=== PATIENT | female | born 1975 ===

== ENCOUNTER 2017-08-14 16:06 | Inpatient (IN) | payer OTHER ==
[~2017-08-14] VITALS: Ht 167.6 cm; Wt 65.8 kg
[2017-08-14] MEDS ORDERED: IV NORMAL SALINE 1000 ML BAG IV ONE (16:30)
[2017-08-14] MEDS ORDERED: ONDANSETRON 4 MG/2 ML VIAL IV ONE (16:30)
[2017-08-14] MEDS ORDERED: VENL75TA4 PO (16:31)
[2017-08-14 16:45] LABS: BASOPHILS % (AUTO) 0.5 % (0.0-2.0); EOSINOPHILS % (AUTO) 0.6 % (0.0-7.0); HEMOGLOBIN 14.3 g/dL (12.5-16.3); LYMPHOCYTES # (AUTO) 1.6 K/uL (20.0-40.0); LYMPHOCYTES % (AUTO) 19.8 % (20.5-51.5); MEAN CORPUSCULAR HEMOGLOBIN 31.7 uug (23.8-33.4); MEAN CORPUSCULAR HGB CONC 35 g/dL (32.5-36.3); MEAN CORPUSCULAR VOLUME 91.2 fL (73.0-96.2); MONOCYTES # (AUTO) 0.4 K/uL (2.0-10.0); MONOCYTES % (AUTO) 5.2 % (0.0-11.0); NEUTROPHILS % (AUTO) 73.9 % (38.5-71.5); PLATELET COUNT (AUTO) 200 K/uL (152-348); RED BLOOD CELL COUNT(AUTO) 4.49 MIL/uL (4.06-5.63); WHITE BLOOD COUNT (AUTO) 8.1 K/uL (3.6-10.2)
[2017-08-14] MEDS ORDERED: ONDANSETRON 4 MG/2 ML VIAL ONE (16:46)
[2017-08-14 16:57] LABS: CREATININE 0.7 mg/dL (0.6-1.3); POTASSIUM 3.5 mmol/L (3.5-5.1)
[2017-08-14 17:02] LABS: BILIRUBIN,DIRECT 0.1 mg/dL (0.0-0.2); BILIRUBIN,TOTAL 0.6 mg/dL (0.2-1.0); TOTAL PROTEIN, SERUM 7.4 g/dL (6.4-8.2)
[2017-08-14] MEDS ORDERED: DIATR MEGLU/DIATRIZOATE SODIUM 120 ML BOTTLE ONE (17:06)
--- NOTE | 2017-08-14 17:35 | NUR ---
Call placed to Dr. Menjivar () per Dr. Moss request, left msg immediate call back.
[2017-08-14] MEDS ORDERED: MAGNESIUM HYDROXIDE 30 ML LIQUID UDC PO PRN (18:00)
[2017-08-14] MEDS ORDERED: HYDROCODONE/APAP 5-325MG TABLET PO PRN (18:00)
[2017-08-14] MEDS ORDERED: Z GUARD REMEDY PASTE 57 GM TUBE TOP PRN (18:00)
[2017-08-14] MEDS ORDERED: MORPHINE SULFATE 2 MG/1 ML DISP.SYRIN IV PRN (18:00)
[2017-08-14] MEDS ORDERED: ACETAMINOPHEN 325 MG TABLET PO PRN (18:00)
--- NOTE | 2017-08-14 19:46 | NUR ---
Pt. admitted to TELE, under care of Dr. [place] Belongs List completed
[2017-08-14 20:00] VITALS: BP 113/72
[2017-08-14] MEDS: ONDANSETRON 4 MG/2 ML VIAL IV PRN (21:46)
[2017-08-14] MEDS: IV D5 1/2 NS 1000 ML 1,000 ML IV PRN (21:47)
[2017-08-14] MEDS: MORPHINE SULFATE 4 MG/1 ML DISP.SYRIN IV PRN (22:19)
--- NOTE | 2017-08-14 22:23 | NUR ---
Dr. Camp aware of bouts of diarrhea- at this point and time nothing is recomended due to disease process of partial gastro opening physical obstruction due to a balloon inserted on previous procedure. Patient is aware if any medication that affects the g.i. system can affect the gastric mouth partial obstruction. Patient repeated back instructions and understood. Placed call light with in reach.
--- NOTE | 2017-08-14 22:45 | NUR ---
Patient came in via gurney to 226. Patient's main compliant at this point and time is N/V/D x4 episodes since admitted to floor, MD aware. Attempted to insert NG to low intermittent suction as ordered. Patient did not tolerate ng insertion x 1 to left nare. Noted with nose cosmetic surgery. Patient refused ng insertion at this point and time. Patient teaching in compliance to plan of care, Patient verbalized understanding of instructions but refuse any further attempts at ng insertion.
[2017-08-15] MEDS: ONDANSETRON 4 MG/2 ML VIAL IV PRN ×3 (03:11→17:06)
[2017-08-15] MEDS: MORPHINE SULFATE 4 MG/1 ML DISP.SYRIN IV PRN ×4 (03:26→19:48)
[2017-08-15] MEDS ORDERED: MORPHINE SULFATE 2 MG/1 ML DISP.SYRIN ONE (03:38)
[2017-08-15 04:48] VITALS: BP 100/57
--- NOTE | 2017-08-15 07:00 | NUR ---
PATIENT STABLE ON SHIFT, NO EPISODES OF ACUTE CARDIO PULMONARY DISTRESS. CALL LIGHT WITH IN REACH. PATIENT KEPT NPO FOR POSSIBLE EGD TO REMOVE BALLOON IN GASTRIC/STOMACH. PATIENT FREE FROM FALLS ON SHIFT.
[2017-08-15 07:07] LABS: BILIRUBIN,TOTAL 0.4 mg/dL (0.2-1.0); CREATININE 0.6 mg/dL (0.6-1.3); MAGNESIUM 1.8 mg/dL (1.8-2.4); PHOSPHOROUS 3.3 mg/dL (2.5-4.9); POTASSIUM 3.3 mmol/L (3.5-5.1); TOTAL PROTEIN, SERUM 6.3 g/dL (6.4-8.2)
[2017-08-15 07:08] LABS: THYROID STIMULATING HORMONE 1.632 mIU/mL (0.358-3.740)
[2017-08-15 07:12] LABS: BASOPHILS % (AUTO) 0.4 % (0.0-2.0); EOSINOPHILS # (AUTO) 0.1 K/uL (0.0-0.7); EOSINOPHILS % (AUTO) 1.2 % (0.0-7.0); HEMATOCRIT 37.1 % (37-47); HEMOGLOBIN 12.7 G/DL (12.0-16.0); LYMPHOCYTES # (AUTO) 1.7 K/UL (0.8-4.8); LYMPHOCYTES % (AUTO) 26.5 % (20.5-51.5); MEAN CORPUSCULAR HEMOGLOBIN 31.4 UUG (27.0-31.0); MEAN CORPUSCULAR HGB CONC 34 g/dL (32.0-37.0); MEAN CORPUSCULAR VOLUME 91.8 FL (81.0-99.0); MONOCYTES # (AUTO) 0.4 K/UL (0.1-1.30); MONOCYTES % (AUTO) 6.7 % (0.0-11.0); NEUTROPHILS # (AUTO) 4.1 K/UL (1.8-8.9); NEUTROPHILS % (AUTO) 65.2 % (38.5-71.5); PLATELET COUNT (AUTO) 207 K/UL (150-450); RED BLOOD CELL COUNT(AUTO) 4.04 MIL/UL (4.2-5.4); WHITE BLOOD COUNT (AUTO) 6.3 K/UL (4.0-11.2)
--- NOTE | 2017-08-15 07:20 | NUR ---
RECEIVED REPORT FROM [employer] REPAIR TECHNICIAN NURSE, PATIENT IN BED AWAKE, APPEARS TO BE GROGGY, NO PAIN OF REPORTS OR S.O.B., BED IN LOW POSITION, SIDE RAILS UP X2.
[2017-08-15] MEDS: PANTOPRAZOLE SODIUM 40 MG VIAL IV SCH (10:39)
[2017-08-15] MEDS ORDERED: VENL75CA56 PO (11:45)
[2017-08-15] MEDS: POTASSIUM CHLORIDE 10 MEQ, LIDOCAINE-MPF 1% 1 ML in IV DEXTROSE 5% 100 ML IV SCH ×4 (11:59→14:39)
[2017-08-15 12:04] VITALS: BP 100/64
[2017-08-15] MEDS: IV D5 1/2 NS 1000 ML 1,000 ML IV PRN (14:02)
[2017-08-15 15:30] VITALS: BP 98/62
--- NOTE | 2017-08-15 19:22 | NUR ---
RECEIVED NOTICE THAT DR VERDIN WILL DO AN EGD AT 12PM ON 08/16. CONSENT NEEDS TO BE SIGNED, PATIENT IS NPO. PATIENT IS EXPERIENCING INTERMITTENT NAUSEA AND PAIN. BED IN LOW POSITION, SIDE RAILS UP X2.
--- NOTE | 2017-08-15 19:30 | NUR ---
1736 reassessment for zofran administration pending, to be done by day shift RN.
[2017-08-15 20:00] VITALS: BP 104/69
--- NOTE | 2017-08-15 21:10 | NUR ---
Consent for EGD signed by patient. Signed consent placed in patient's chart.
--- NOTE | 2017-08-16 | NUR ---
Clear liquids in am as ordered. EGD deferred per MD's order.
[2017-08-16] MEDS: ONDANSETRON 4 MG/2 ML VIAL IV PRN ×2 (02:39→15:08)
[2017-08-16 04:00] VITALS: BP 106/71
[2017-08-16] MEDS: IV D5 1/2 NS 1000 ML 1,000 ML IV PRN (04:52)
[2017-08-16 06:50] LABS: BASOPHILS % (AUTO) 0.3 % (0.0-2.0); EOSINOPHILS # (AUTO) 0.1 K/uL (0.0-0.7); HEMATOCRIT 37.1 % (31.2-41.9); HEMOGLOBIN 12.8 g/dL (10.9-14.3); LYMPHOCYTES % (AUTO) 31.8 % (20.5-51.5); MEAN CORPUSCULAR HEMOGLOBIN 31.6 uug (24.7-32.8); MEAN CORPUSCULAR HGB CONC 34 g/dL (32.3-35.6); MEAN CORPUSCULAR VOLUME 91.7 fL (75.5-95.3); MONOCYTES # (AUTO) 0.4 K/uL (2.0-10.0); MONOCYTES % (AUTO) 6.7 % (0.0-11.0); NEUTROPHILS # (AUTO) 3.7 K/uL (1.8-8.9); NEUTROPHILS % (AUTO) 59.2 % (38.5-71.5); PLATELET COUNT (AUTO) 183 K/uL (179-408); RED BLOOD CELL COUNT(AUTO) 4.05 MIL/uL (3.63-4.92); WHITE BLOOD COUNT (AUTO) 6.3 K/uL (3.8-11.8)
[2017-08-16 07:13] LABS: MAGNESIUM 1.6 mg/dL (1.8-2.4); PHOSPHOROUS 3.2 mg/dL (2.5-4.9)
--- NOTE | 2017-08-16 07:20 | NUR ---
RECEIVED REPORT FROM PUMPER GAUGER APPRENTICE NURSE, PATIENT IN BED AWAKE NO EVIDENCE OF DISTRESS NOTED, BED IN LOW POSITION, SIDE RIALS UP X2.
[2017-08-16] MEDS: PANTOPRAZOLE SODIUM 40 MG VIAL IV SCH (08:32)
[2017-08-16 11:26] VITALS: BP 109/81
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
[2017-08-16] MEDS ORDERED: ONDA4TAB5 PO (13:41)
[2017-08-16] MEDS ORDERED: HYDR-3326 PO (13:41)
[2017-08-16] MEDS ORDERED: MAGNESIUM OXIDE 400 MG TABLET PO ONE (15:00)
--- NOTE | 2017-08-16 15:00 | NUR ---
Patient asked to remove the restriction she had placed about her and allowing him to come onto the nursing unit. She stated that he will be picking her up and taking her home. Again the patient was asked if she was safe at home and she replied yes.
[2017-08-16 15:25] VITALS: BP 96/66
--- NOTE | 2017-08-16 15:30 | NUR ---
Discharge education provided to patient and , iv removed, no evidence of distress at this time. All questions answered.
--- NOTE | 2017-08-16 15:45 | NUR ---
Patient wheeled to front of building to be met by [facility]
== END 2017-08-16 15:45 | disposition home or self-care (01) | DRG 252 ==
LOC: EDSEX 16:06 → ER 16:06 → MED 19:30
PROVIDERS: ADMIT Internal Medicine; ATTEND Internal Medicine
DX: K95.89 Other complications of other bariatric procedure (principal); K31.1 Adult hypertrophic pyloric stenosis; Y73.3 Surgical instruments, materials and gastroenterology and urology devices (including sutures) associated with adverse incidents; Z98.84 Bariatric surgery status; Y83.2 Surgical operation with anastomosis, bypass or graft as the cause of abnormal reaction of the patient, or of later complication, without mention of misadventure at the time of the procedure; Y92.89 Other specified places as the place of occurrence of the external cause; E87.6 Hypokalemia
CPT/HCPCS: 36415; 71010; 74250; 82746; 83550; 83690; 83735; 84100; 84443; 85025; 85730; 87040; 93307; A4663; C9113; J2001; J2270; J2405; J3480; J3490; J7030; J7060; Q9963